=== PATIENT | female | born 1975 | race Caucasian/White ===

== ENCOUNTER 2017-08-17 16:34 | Emergency (ER) | payer OTHER ==
[2017-08-17] MEDS ORDERED: bacitracin 15gm ointment TP ONE (17:55)
[2017-08-17] MEDS ORDERED: LIDOcaine 1.5% w/epinephrine 1:200,000 5ml ampul IJ ONE (17:55)
[2017-08-17] MEDS ORDERED: IBUP-1986 PO (18:51)
== END 2017-08-17 19:13 | disposition home or self-care (01) ==
LOC: ER 16:35
DX: L60.0 Ingrowing nail (principal); Z79.899 Other long term (current) drug therapy
CPT/HCPCS: 11750; 99284